=== PATIENT | male | born 1985 | race African-American/Black ===

== ENCOUNTER 2020-05-19 10:02 | Emergency (ER) | payer SELFPAY ==
[2020-05-19 10:13] VITALS: BP 111/64; TEMP 99.5; BMI 18.8
[2020-05-19 10:59] VITALS: PULSE 73
== END 2020-05-19 11:53 | disposition home or self-care (01) ==
LOC: JER 10:02
DX: U07.1 COVID-19 (principal)
CPT/HCPCS: 71046-TC-FY; 99283-25; C9803; U0003